=== PATIENT | male | born 1975 | race Caucasian/White ===

== ENCOUNTER 2018-02-09 12:03 | Emergency (ER) | payer OTHER ==
[2018-02-09] MEDS ORDERED: ALTEPLASE 100 MG/100 ML VIAL IV ONE ×2 (12:08→12:49)
[2018-02-09] MEDS ORDERED: ONDANSETRON 4 MG/2 ML VIAL ONE (12:14)
[2018-02-09] MEDS ORDERED: ONDANSETRON 4 MG/2 ML VIAL IVP ONE (12:19)
[2018-02-09 12:23] LABS: PLATELET COUNT 319 10^3/uL (150-400)
--- NOTE | 2018-02-09 12:23 | PDCONSULT ---
Cephalometric Analyst Note: [place] [facility] Note Demographics Consult Type: Acute Stroke First Name: lew Last Name: corazon Date of : 1975 Age: 42 Gender: Male Time of initial page (): 02/09/2018 12:13 Time of return call (): 02/09/2018 12:13 Time Ready to Initiate Telemed Consult (): 02/09/2018 12:13 HPI Additional History (Free Text): 42yo man who presents with onset at 1135AM aphasia and right sided weakness. He was sitting and talking to his father. He dropped a glass out of his right hand and stopped speaking. tPA bolus started at 1220PM (Alexa) cell: [phone] Possible tPA candidate: Not on warfarin or NOACs, No ICH history, No recent major surgery, No known active major internal bleeding, No known blood disorders [facility]-- Past Medical History: Denies PMH Medications: denies medications Allergies: NKDA Exam Vitals: vital signs reviewed SBP: 126 DBP: 88 NIHSS Time (): 02/09/2018 12:16 LOC 1a: 0 = Alert; keenly responsive LOC 1b: 2 = Answers neither questions correctly LOC Commands: 0 = Performs both tasks correctly Best Gaze: 1 = Partial gaze palsy; gaze is abnormal in one or both eyes, but forced deviation or total gaze paresis is not present Visual: 2 = Complete hemianopia Facial Palsy: 1 = Minor paralysis (flattened nasolabial fold, asymmetry on smiling) Motor Arm L: 0 = No drift; limb holds 90 (or 45) degrees for full 10 seconds Motor Arm R: 4 = No movement Motor Leg L: 0 = No drift; leg holds 30-degree position for full 5 seconds Motor Leg R: 4 = No movement Limb Ataxia: 0 = Absent Sensory: 0 = Normal; no sensory loss Best Language: 3 = Mute, global aphasia; no usable speech or auditory comprehension Dysarthria: 2 = Severe dysarthria; patient's speech is so slurred as to be unintelligible Extinction + Inattention: 0 = No abnormality NIHSS: [address]: no bleed, MCA sign, left MCA sign Assessment Assessment: Acute Ischemic Stroke, left MCA stroke syndrome Plan Lytic/Intervention: IV + IA intervention Time IV tPA Recommended ([place]ountain Time): 02/09/2018 12:17 Blood Pressure Managment: Nicardipine, Labetolol Target Blood Pressure: SBP < 180 and DBP < 100 Labs: Comprehensive metabolic panel, Lipid Panel, UDS Imaging: MRI brain without Diagnostic test: echocardiogram with bubble Therapy/Eval: NPO until cleared by swallow evaluation, PT/OT, Speech/Swallow therapy consult VTE Prophylaxis: SCD tPA Administration Recommendations: I have reviewed the risks/benefits of tPA with family &/or patient. They understand that there is a potential of life threatening hemorrhagic complication from tPA, but feel that benefits outweigh risks and want to proceed with administration of tPA, BP goal< 180/100 for 24hrs post tPA administration, Use Labetolol 10-20mg IV prn or Nicardipine gtt to maintain BP parameters, No antiplatelets or anticoagulants for next 24 hrs unless indicated for emergent IA procedure or other life threatening situation, Call back if there is any decline in neurological condition, Transfer to facility that is IA capable for consideration of mechanical thrombectomy Other: LDL goal less than 70, telemetry monitoring, I have discussed my recommendations with the referring provider Disposition: transfer to [facility] Telemedicine: Interactive 2 way audio and visual telecommunication technology was utilized during this visit. Provider Location: [place]
[2018-02-09 12:24] VITALS: BP 127/78
--- NOTE | 2018-02-09 12:27 | EDPHY ---
H & P Time Seen by Provider: 02/09/18 12:18 HPI/ROS: Chief complaint. Stroke activation HPI. 42-year-old male seen on arrival by EMS as a stroke activation. Apparently at 11:35 a.m. He was sitting having lunch with his dad and then dropped the glass that he was holding to the floor and slumped down and became nonverbal and dad noticed that he was not moving his right arm or right leg. They called EMS. Patient has never had any similar symptoms. subsequently tells me he is healthy. He does not take any medication. He is not allergic to any medication. She tells me he is not very good about going to the doctor. Apparently there has been no recent illness or head injury or complaints of fever or trouble breathing or chest discomfort. ROS Constitutional. no fever/chills, weakness right-sided Eyes. no problems with vision ENT. no sore throat, no nasal drainage Cardiovascular. no chest pain Respiratory. no shortness of breath, no cough Abdominal. no abdominal pain, no nausea/vomiting, no diarrhea . no problems urinating MS. no calf pain/swelling, no neck/back pain, no joint pain Skin. no rash Lymph. no swollen glands Neuro. Not speaking and right arm and right leg weakness. Unable to walk Past Medical/Surgical History: Healthy Social History: , nonsmoker, no alcohol Physical Exam: Initial exam is performed on the stretcher prior to CT. I find the patient to be nonverbal and unable to cooperate with exam. There is apparent right-sided weakness Further exam is performed when patient returns from CT General Appearance: Patient has eyes open but does not speak. Eyes: Pupils equal and round no pallor or injection. ENT, Mouth: Mucous membranes are moist. Respiratory: There are no retractions, lungs are clear to auscultation. Cardiovascular: Regular rate and rhythm. Gastrointestinal: Abdomen is soft and nontender, no masses, bowel sounds normal. Neurological: Awake but not responsive or following commands. Nonverbal. No strength or movement to right arm and right leg. Unable to assess sensation. Skin: Warm and dry, no rashes. Musculoskeletal: Neck is supple nontender. Extremities symmetrical, full range of motion. Psychiatric: Patient is oriented X 3, there is no agitation. Constitutional: Initial Vital Signs Temperature (C) 36.9 C 02/09/18 12:18 Heart Rate 83 02/09/18 12:18 Respiratory Rate 20 02/09/18 12:18 Blood Pressure 133/85 H 02/09/18 12:18 O2 Sat (%) 91 L 02/09/18 12:18 O2 (L/minute) 2 Allergies/Adverse Reactions: No Known Allergies Allergy (Unverified 11/08/09 21:05) Home Medications: Medication Instructions Recorded Cephalexin [Keflex] 500 mg PO QID #20 cap 11/08/09 NO HOME MEDS 11/08/09 Medical Decision Making - Diagnostics EKG Interpretation: EKG interpreted by me shows normal sinus rhythm normal interval. Left axis deviation. QRS otherwise normal. There is no significant ST elevation or depression. No arrhythmia. The rate is 63 Imaging Results: Imaging Impressions Head CT 02/09/18 12:05 Impression: 1. Dense left middle cerebral artery suggesting intraluminal thrombus. 2. No acute hemorrhage, hydrocephalus, or mass effect. 3. Recommend CTA. 4. Recommend MRI of the brain if there is continued clinical concern. Findings and recommendations discussed with emergency department physician, Rickey Garcia MD at 1211 hours on February 09, 2018. Final report concurs with initial preliminary interpretation. A test result has been communicated to a licensed care provider and documented in the [facility] Critical Result system on 02/09/2018 12:13, Message ID [id number]. Noncontrast head CT shows no intracranial hemorrhage. There does appear to be dense left middle cerebral artery suggesting thrombus. Reviewed by me and discussed with Radiology Procedures: IV normal saline, monitor ED Course/Re-evaluation: Upon return from CT we use the robot and consulted [facility]. I discussed the case with from [facility] who recommends tPA. He also recommends helicoptering the patient to [facility] for thrombectomy. I discussed this with patient and family. We discussed risks and benefits of tPA. They expressed understanding and agreement TPA is begun at 12:20 p.m. Patient remained stable and maybe slightly improved after tPA is initiated. Flight crew is here to take the patient to [facility] Differential Diagnosis: Left MCA distribution CVA of acute onset. Symptoms began at 11:35 a.m. TPA started at 12:20 p.m. Critical Care Time: critical care time exclusive of procedures 40 minutes - Data Points Laboratory Results: Laboratory Results 02/09/18 12:15 02/09/18 12:15 02/09/18 02/09/18 02/09/18 12:15 12:15 12:15 WBC 13.94 10^3/uL H 10^3/uL (3.80-9.50) RBC 5.70 10^6/uL 10^6/uL (4.40-6.38) Hgb 16.5 g/dL g/dL (13.7-17.5) POC Hgb Hct 47.7 % % (40.0-51.0) POC Hct MCV 83.7 fL fL (81.5-99.8) MCH 28.9 pg pg (27.9-34.1) MCHC 34.6 g/dL g/dL (32.4-36.7) RDW 13.0 % % (11.5-15.2) Plt Count 319 10^3/uL 10^3/uL (150-400) MPV 9.0 fL fL (8.7-11.7) Neut % (Auto) 81.9 % H % (39.3-74.2) Lymph % (Auto) 10.3 % L % (15.0-45.0) Mchenry % (Auto) 7.1 % % (4.5-13.0) Eos % (Auto) 0.1 % L % (0.6-7.6) Baso % (Auto) 0.3 % % (0.3-1.7) Nucleat RBC Rel Count 0.0 % % (0.0-0.2) Absolute Neuts (auto) 11.43 10^3/uL H 10^3/uL (1.70-6.50) Absolute Lymphs (auto) 1.43 10^3/uL 10^3/uL (1.00-3.00) Absolute Monos (auto) 0.99 10^3/uL H 10^3/uL (0.30-0.80) Absolute Eos (auto) 0.01 10^3/uL L 10^3/uL (0.03-0.40) Absolute Basos (auto) 0.04 10^3/uL 10^3/uL (0.02-0.10) Absolute Nucleated RBC 0.00 10^3/uL 10^3/uL (0-0.01) Immature Gran % 0.3 % % (0.0-1.1) Immature Gran # 0.04 10^3/uL 10^3/uL (0.00-0.10) PT 12.8 SEC SEC (12.0-15.0) INR 0.94 (0.83-1.16) POC Sodium Sodium 141 mEq/L mEq/L (135-145) POC Potassium Potassium 4.9 mEq/L mEq/L (3.3-5.0) POC Chloride Chloride 107 mEq/L mEq/L (97-110) Carbon Dioxide 23 mEq/l mEq/l (22-31) Anion Gap 11 mEq/L mEq/L (8-16) POC BUN BUN 21 mg/dL mg/dL (7-23) Creatinine 1.3 mg/dL mg/dL (0.7-1.3) POC Creatinine Estimated GFR > 60 Glucose 81 mg/dL mg/dL (70-100) POC Glucose Calcium 10.2 mg/dL mg/dL (8.5-10.4) 02/09/18 12:09 WBC RBC Hgb POC Hgb 17.0 gm/dL gm/dL (13.7-17.5) Hct POC Hct 50 % % (40-51) MCV MCH MCHC RDW Plt Count MPV Neut % (Auto) Lymph % (Auto) Mchenry % (Auto) Eos % (Auto) Baso % (Auto) Nucleat RBC Rel Count Absolute Neuts (auto) Absolute Lymphs (auto) Absolute Monos (auto) Absolute Eos (auto) Absolute Basos (auto) Absolute Nucleated RBC Immature Gran % Immature Gran # PT INR POC Sodium 144 mEq/L mEq/L (135-145) Sodium POC Potassium 4.1 mEq/L mEq/L (3.3-5.0) Potassium POC Chloride 107 mEq/L mEq/L (97-110) Chloride Carbon Dioxide Anion Gap POC BUN 21 mg/dL mg/dL (7-23) BUN Creatinine POC Creatinine 1.4 mg/dL H mg/dL (0.7-1.3) Estimated GFR Glucose POC Glucose 85 mg/dL mg/dL (70-100) Calcium Medications Given: Discontinued Medications Alteplase, Recombinant (Activase) 9 mg IV ONCE ONE PRN Reason: Protocol Stop: 02/09/18 12:50 Last Admin: 02/09/18 12:20 Dose: 9 mg Alteplase, Recombinant (Activase) 81 mg IV ONCE ONE PRN Reason: Protocol Stop: 02/09/18 12:50 Last Admin: 02/09/18 12:21 Dose: 81 mg Ondansetron HCl (Zofran) 4 mg IVP EDNOW ONE Stop: 02/09/18 12:20 Last Admin: 02/09/18 12:30 Dose: 4 mg Point of Care Test Results: Chemistry 02/09/18 12:09 POC Sodium 144 mEq/L mEq/L (135-145) POC Potassium 4.1 mEq/L mEq/L (3.3-5.0) POC Chloride 107 mEq/L mEq/L (97-110) POC BUN 21 mg/dL mg/dL (7-23) POC Creatinine 1.4 mg/dL H mg/dL (0.7-1.3) POC Glucose 85 mg/dL mg/dL (70-100) ISTAT H&H 02/09/18 12:09 POC Hgb 17.0 gm/dL gm/dL (13.7-17.5) POC Hct 50 % % (40-51) Departure - Departure Disposition: Acute Care Hospital Not [facility] Clinical Impression: Acute ischemic stroke Condition: Fair Referrals: Patient,NotPresent [Unknown] - As per Instructions
[2018-02-09 12:31] LABS: INR 0.94 (0.83-1.16); PROTIME(PATIENT) 12.8 SEC (12.0-15.0)
[2018-02-09] MEDS ORDERED: ALTEPLASE 1 MG/ML SYR IV ONE (12:49)
[2018-02-09] MEDS ORDERED: NS 50 ML IV ONE (12:49)
--- NOTE | 2018-02-09 15:15 | CPEKG ---
Test Reason : OPEN Blood Pressure : / mmHG Vent. Rate : 063 BPM Atrial Rate : 064 BPM P-R Int : 205 ms QRS Dur : 090 ms QT Int : 429 ms P-R-T Axes : 039 016 017 degrees QTc Int : 440 ms Sinus rhythm Borderline prolonged CO interval Left atrial enlargement ST elev, probable normal early repol pattern Confirmed by Rickey Garcia ([id number]) on 02/09/2018 3:14:20 PM Referred By: Confirmed By:Rickey Garcia
--- NOTE | 2018-02-09 15:28 | ASDISCHSUM ---
Discharge Information Plan Status:Acute Transfer Medically Cleared to Leave: Discharge Date:02/09/2018 12:50 PM CM D/C Disposition:[facility] ADT D/C Disposition:[facility] Projected Discharge Date:02/09/2018 12:50 PM Transportation at D/C:[facility] Discharge Delay Reason: Follow-Up Date:02/09/2018 12:50 PM Discharge Slot: Final Diagnosis: Placement Information Patient Contact Information Contact Name:DYLAN Relationship:Life Partner Address:[address] Work Phone: City:[place] Alternate Phone: State/Zip Code:[place] [address] Email: Financial Information Financial Class:HMO and PPO Plans Primary Plan Desc:[employer] Primary Plan Number:[id number] Secondary Plan Desc: Secondary Plan Number: Assessment Information [facility] CM Progress Note CM Note CM Note Notes: Pt presented to the ED via EMS as a Stroke Alert. Pt was sitting and eating lunch w/his Dad, Woody, when he suddenly became aphasic, dropped the glass he was holding and was unable to move his right arm or right leg. Pt's family arrived to the ED, including his mother Obie and pt's longtime girlfriend, Alexa Chilel ([phone]). Obie and Woody are visiting from the (where the patient is originally from[place] Pt has lived in the [place] for almost 20 years, and he and Alexa have been together for 11 yrs. Alexa states pt is rather reserved when it comes to his health and he doesn't normally see a PCP. Pt's CT scan shows left MCA acute ischemic stroke. Plan is for pt to have tPA started here in the ED and to transfer patient to [facility] for possible mechanical thrombectomy. Family aware and agreeable to treatment plan. Family provided directions, address and phone # for [facility]. CM available for further assistance if needed. Date Signed: 02/09/2018 03:26 PM Electronically Signed By:Sue Victor RN Intervention Information Intervention Type:Emotional Support Date of Service:02/09/2018 03:26 PM Patient Type:Emergency Room Staff Member:SOFIA Victor Sharon Hours:0.75 Discipline:Peoplesoft Developer Severity: Comment: Intervention Type:Education Family/Patient Date of Service:02/09/2018 03:26 PM Patient Type:Emergency Room Staff Member:SOFIA Victor Sharon Hours:0.5 Discipline:Peoplesoft Developer Severity: Comment:
== END 2018-02-09 12:50 | disposition short-term general hospital (02) ==
LOC: EDUNIT#
DX: I63.312 Cerebral infarction due to thrombosis of left middle cerebral artery (principal)
CPT/HCPCS: 82435-PO; 82565-PO; 82947-PO; 84132-PO; 84295-PO; 84520-PO; 85014-PO; 96374; J2405; J2997

== ENCOUNTER 2018-03-10 18:31 | Emergency (ER) | payer OTHER ==
--- NOTE | 2018-03-10 19:17 | EDPHY ---
H & P Stated Complaint: trouble urinating hasn't gone since 9 AM Time Seen by Provider: 03/10/18 18:53 - Personal History Current Tetanus/Diphtheria Vaccine: Unsure Current Tetanus Diphtheria and Acellular Pertussis (TDAP): Unsure - Medical/Surgical History Hx Asthma: No Hx Chronic Respiratory Disease: No Hx Diabetes: No Hx Cardiac Disease: No Hx Renal Disease: No Hx Cirrhosis: No Hx Alcoholism: No Hx HIV/AIDS: No Hx Splenectomy or Spleen Trauma: No Other PMH: dissection 03/20 - Social History Smoking Status: Never smoked Constitutional: Initial Vital Signs Temperature (C) 37 C 03/10/18 18:32 Heart Rate 70 03/10/18 18:32 Respiratory Rate 16 03/10/18 18:32 Blood Pressure 127/80 H 03/10/18 18:32 O2 Sat (%) 96 03/10/18 18:32 O2 Delivery Mode Room Air Allergies/Adverse Reactions: No Known Allergies Allergy (Unverified 11/08/09 21:05) Home Medications: Medication Instructions Recorded Cephalexin [Keflex] 500 mg PO QID #20 cap 11/08/09 NO HOME MEDS 11/08/09 Medical Decision Making ED Course/Re-evaluation: CHIEF COMPLAINT: Trouble urinating HISTORY OF PRESENT ILLNESS: This patient is a 42 male who is s/p left carotid dissection with surgical repair 1 week ago. He complains of difficulty urinating and constipation. He has been constipated since yesterday. He was able to urinate this morning. He endorses decreased PO intake since his surgery and has not been drinking water. He endorses strenuous activity today. Currently he is complaining of abdominal discomfort, constipation, and inability to urinate. He denies incontinence, no paresthesias or numbness. No pain in his scrotal area. He took Colace at 4pm without relief. No chest pain, shortness of breath, headache, nausea, vomiting, or other associated symptoms. REVIEW OF SYSTEMS: A comprehensive 10 system review of systems is otherwise negative aside from elements mentioned in the history of present illness and medical decision making. PHYSICAL EXAM: HR, BP, O2 Sat, RR. Temp noted General Appearance: Alert, well hydrated, appropriate, and non-toxic appearing. Head: Atraumatic without scalp tenderness or obvious injury Eyes: Pupils equal, round, reactive to light and accommodation, EOMI, no trauma , no injection. Ears: Clear bilaterally, no perforation, normal landmarks Nose: Atraumatic, no rhinorrhea, clear. Throat: There is no erythema or exudates, no lesions, normal tonsils, mucus membranes moist. Neck: Supple, nontender, no lymphadenopathy. Respiratory: No retractions, no distress, no wheezes, and no accessory muscle use. Lungs are clear to auscultation bilaterally. Cardiovascular: Regular rate and rhythm, no murmurs, rubs, or gallops. Bilateral carotid, radial, dorsalis pedis, and posterior tibial pulses intact. Good capillary refill all extremities. Gastrointestinal: Suprapubic tenderness. Abdomen is soft, non-distended, no masses, no rebound, no guarding, no peritoneal signs. Musculoskeletal: Normal active ROM of all extremities, atraumatic. Neurological: Alert, appropriate, and interactive. The patient has normal DTRs and non-focal cranial nerves, motor, sensory, and cerebellar exam. Skin: No rashes, good turgor, no nodules on palpation. Past medical history: Patient is s/p carotid dissection 1 week ago. He is taking ASA, lisinopril, atorvastatin, Prozac. Past surgical history: Repair of left carotid dissection. Family history: Noncontributory Social history: . at bedside. Employed. Does not abuse tobacco, drugs, or alcohol. DIFFERENTIAL DIAGNOSIS: The differential diagnosis for the patient's urinary retention included but was not limited to medication side effect, neurologic causes, outflow obstruction including prostatic hypertrophy, and infection. MEDICAL DECISION MAKIN42 y/o male presents with urinary retention and constipation. Patient has suprapubic tenderness on exam. Plan for bladder scan. Patient's urinary retention is likely due to anesthesia / medication side effect. Bladder scan shows 650mL of urine. Plan to place Naranjo catheter. Plan for UA. Naranjo catheter placement successful. UA negative for UTI. Reassessed patient. He feels some relief following Naranjo catheter placement. Plan to discharge home in good condition with referral to urology. We discussed at-home treatments for constipation including MiraLax and magnesium citrate. He will try these. Follow up and return precautions discussed. He is comfortable with this plan. - Data Points Laboratory Results: 03/10/18 19:35 Urine Color YELLOW Urine Appearance CLEAR Urine pH 5.0 (5.0-7.5) Ur Specific [place] 1.017 (1.002-1.030) Urine Protein NEGATIVE (NEGATIVE) Urine Ketones NEGATIVE (NEGATIVE) Urine Blood 2+ H (NEGATIVE) Urine Nitrate NEGATIVE (NEGATIVE) Urine Bilirubin NEGATIVE (NEGATIVE) Urine Urobilinogen NEGATIVE EU EU (0.2-1.0) Ur Leukocyte Esterase NEGATIVE (NEGATIVE) Urine RBC 10-15 /hpf H /hpf (0-3) Urine WBC 1-3 /hpf /hpf (0-3) Ur Epithelial Cells NONE SEEN /lpf /lpf (NONE-1+) Urine Mucus TRACE /lpf /lpf (NONE-1+) Urine Sperm PRESENT /hpf /hpf (NONE SEEN) Urine Glucose NEGATIVE (NEGATIVE) Departure - Departure Disposition: Home, Routine, Self-Care Clinical Impression: Urinary retention Constipation Qualifiers: Constipation type: drug induced constipation Qualified Code(s): K59.03 - Drug induced constipation Condition: Good Instructions: Constipation (ED), Urinary Retention in Men (ED), High Fiber Diet (ED), Naranjo Catheter Placement and Care (ED) Additional Instructions: Follow up with urology in 2-3 days. We have referred you to our urologist retail personal banker. For constipation, mix 1 gallon of Gatorade with one container of Miralax powder. Drink this over the course of one hour. (About one cup every 15 minutes) . Take magnesium citrate, available over the counter, as directed on the packaging. You may drink the entire bottle when you arrive home. Return for worsening pain, fever, flank pain, or other worsening of condition or further concerns. Referrals: Chad Lorenz MD [Primary Care Provider] - As per Instructions Chad Upton MD [Medical Doctor] - As per Instructions Report Scribed for: Bryce Rendon Report Scribed by: Anna Lott Date of Report: 03/10/18 Time of Report: 22:13
[2018-03-10] MEDS ORDERED: LIDOCAINE 2% JELLY 20 ML (UROJECT) ONE (19:21)
[2018-03-10 20:07] VITALS: BP 132/90
== END 2018-03-10 20:08 | disposition home or self-care (01) ==
PROC: 0T9B70Z Drainage of Bladder with Drainage Device, Via Natural or Artificial Opening (ICD-10-PCS; principal; 2018-03-10)
PROC: 4A0D7LZ Measurement of Urinary Volume, Via Natural or Artificial Opening (ICD-10-PCS; principal; 2018-03-10)
DX: R33.9 Retention of urine, unspecified (principal); K59.03 Drug induced constipation; Z98.890 Other specified postprocedural states